=== PATIENT | female | born 1970 | race American Indian/Alaskan Native ===

== ENCOUNTER 2018-08-11 19:25 | Emergency (ER) | payer SELFPAY ==
[2018-08-11 19:37] VITALS: BP 154/98
[2018-08-11] MEDS ORDERED: NORCO 5/325 PO ONE (20:51)
[2018-08-11] MEDS ORDERED: NACL 0.9% 1000 ML 1,000 ML IV ONE (20:51)
[2018-08-11 21:51] LABS: INR 0.95 (0.87-1.13); Partial Thromboplastin Time 25.7 Sec. (24.2-36.6)
--- NOTE | 2018-08-11 21:54 | Cat Scan Report ---
FINAL REPORT EXAM: CT HEAD/BRAIN WO CON HISTORY: syncope TECHNIQUE: 2.5 millimeter axial images from the skullbase to the vertex. Comparison: None FINDINGS: There is no evidence of an acute intracranial process, intracranial hemorrhage or mass effect. The ventricles are normal size. The visualized portions of the orbits, paranasal and mastoid sinuses are unremarkable. The bony structures are unremarkable in appearance. IMPRESSION: 1. No evidence of an acute intracranial process, intracranial hemorrhage or mass effect.
[2018-08-11 22:08] LABS: BUN/Creatinine Ratio 9; Blood Urea Nitrogen 7 mg/dL (7-17); Calcium 8.6 mg/dL (8.4-10.2); Hemolysis Index 16
--- NOTE | 2018-08-11 22:09 | Emergency Department Report ---
HPI - General Chief Complaint: Syncope Time Seen by Provider: 08/11/18 20:35 - HPI HPI: The patient is a 48-year-old female presents for evaluation of syncope. The patient was pleasant one hour prior to arrival, she became overheated and dizzy at home while watching a football game, and passed out. She states that the lightheadedness was severe, constant for seconds, worse with movement, improved with sitting down. The patient also complains of a mild generalized achy headache for the past one hour, clicks insidious onset. The patient denies fever, neck pain, paresthesias, focal motor weakness, blurry vision, ear pain, tinnitus, chest pain, hemoptysis, dyspnea, abdominal pain, confusion or altered mental status, or recent URI or diarrhea. ED Past Medical Hx - Past Medical History Previous Medical History?: Yes Hx Hypertension: Yes - Surgical History Past Surgical History?: Yes Additional Surgical History: , hernia - Social History Smoking Status: Never Smoker Substance Use Type: Alcohol - Medications Home Medications: Home Medications Medication Instructions Recorded Confirmed Last Taken Type Lisinopril [Prinivil] 10 mg PO DAILY 08/11/18 08/11/18 Unknown History ED Review of Systems ROS: Stated complaint: SYNCOPE Other details as noted in HPI Constitutional: reports dizziness & syncope denies: fever ENT: denies: throat or neck pain Respiratory: denies: cough, shortness of breath Cardiovascular: denies: chest pain Endocrine: denies unexplained weight loss or gain Gastrointestinal: denies: abdominal pain, nausea Genitourinary: denies: dysuria Musculoskeletal: denies: leg swelling Skin: denies: rash Neurological: denies: headache Hematological/Lymphatic: denies: easy bleeding or easy bruising Psych: denies sadness or hopelessness Physical Exam - Physical Exam Vital Signs: Vital Signs 08/11/18 08/11/18 19:32 19:42 Temperature 98.4 F 98.4 F Pulse Rate 91 H 91 H Respiratory 18 18 Rate Blood Pressure 154/98 [Left] O2 Sat by Pulse 98 98 Oximetry Physical Exam: General: well-nourished, well-developed, no acute distress Head: Normocephalic, atraumatic Eyes: normal sclera ENT: Mucous membranes are pale and dry Neck: No neck stiffness, no cervical adenopathy Respiratory: Breath sounds equal bilaterally, no wheezing, rales, or rhonchi Cardio: S1 and S2 present, no murmurs, rubs, gallops, capillary refill is delayed Abdomen: Normoactive bowel sounds, soft abdomen, no rigidity, no guarding or rebound tenderness Chest WALL/Back: No tenderness to palpation of the chest wall, no CVA tenderness with percussion Musc: No pitting edema Skin: No rash Neuro: alert oriented x4, normal cognition, speech normal, PERRL, EOM intact, no facial drooping, no uvula or tongue deviation on protrusion, no deficit with rotation of neck or shoulder shrug, no obvious gross motor deficit in the upper or lower extremities with flexion or extension at the shoulder, elbow, wrist, hip, knee, or ankle bilaterally, no obvious gross sensation deficit to crude touch or 2 pt discrimination, 2+ symmetric reflexes on DTR testing, no coordination deficit with [id number] or [id number] testing, Babinski downgoing Psych: Normal affect ED Course Vital Signs 08/11/18 08/11/18 19:32 19:42 Temperature 98.4 F 98.4 F Pulse Rate 91 H 91 H Respiratory 18 18 Rate Blood Pressure 154/98 [Left] O2 Sat by Pulse 98 98 Oximetry ED Medical Decision Making - Medical Decision Making The patient was seen and examined by myself. The patient is placed on a case monitor and continuous pulse ox. On initial evaluation, the patient was found to be in no distress. Evaluation orders are placed. EKG is negative for arrhythmia. IV access is established and the patient is given 1 L normal saline fluid bolus for treatment of her dehydration, and IV Benadryl for her dizziness, and a tablet of [place] for her pain. Lab results are not concerning. CT scan the head is negative for acute intracranial disease process. The patient was reevaluated and reported that their symptoms were markedly improved. The patient is stable for discharge with outpatient follow-up. The patient is given follow-up and return instructions. The patient expressed understanding and agreed with the plan. The patient is discharged in stable condition. Critical care attestation.: If time is entered above; I have spent that time in minutes in the direct care of this critically ill patient, excluding procedure time. ED Disposition Clinical Impression: Dehydration, Orthostatic dizziness, Acute post-traumatic headache, not intractable Syncope Qualifiers: Syncope type: unspecified Qualified Code(s): R55 - Syncope and collapse Disposition: DC-01 TO HOME OR SELFCARE Is pt being admited?: No Does the pt Need Aspirin: No Condition: Stable Instructions: Syncope (ED), Dehydration (ED) Referrals: PRIMARY CARE, [Primary Care Provider] - 3-5 Days [facility] [Outside] - 3-5 Days Time of Disposition: 22:09
[2018-08-11] MEDS ORDERED: TORADOL IV ONE (22:10)
[2018-08-11 22:29] LABS: Basophils % (Auto) 0.5 % (0.0-1.8); Hematocrit 35.2 % (30.3-42.9); Hemoglobin 11.4 gm/dl (10.1-14.3); Lymphocytes % (Auto) 47.5 % (13.4-35.0); Mean Corpuscular HGB Conc 32 % (30-34); Mean Corpuscular Hemoglobin 29 pg (28-32); Mean Corpuscular Volume 89 fl (79-97); Monocytes # (Auto) 0.3 K/mm3 (0.0-0.8); Monocytes % (Auto) 6.4 % (0.0-7.3); Platelet Count 281 K/mm3 (140-440); Red Blood Count 3.96 M/mm3 (3.65-5.03); Red Cell Distribution Width 17.2 % (13.2-15.2)
[2018-08-11] MEDS ORDERED: TORADOL ONE (23:18)
[2018-08-11] MEDS: BENADRYL IV ONE ×2 (23:22→23:25)
== END 2018-08-12 00:25 | disposition home or self-care (01) ==
LOC: ED 19:25
DX: E86.0 Dehydration (principal); R55 Syncope and collapse; I10 Essential (primary) hypertension
CPT/HCPCS: 36415; 70450; 80048; 83880; 84703; 85025; 85610; 85730; 93005; 93010; 96360; 99285; J7030; J1200; J1885

== ENCOUNTER 2018-11-24 22:10 | Inpatient (IN) | payer OTHER, SELFPAY ==
[2018-11-24] MEDS ORDERED: NACL 0.9% 1000 ML 1,000 ML IV ONE (22:20)
[2018-11-24 22:33] LABS: Hematocrit 36.2 % (30.3-42.9); Hemoglobin 11.9 gm/dl (10.1-14.3); Mean Corpuscular HGB Conc 33 % (30-34); Mean Corpuscular Volume 89 fl (79-97); Platelet Count 281 K/mm3 (140-440); Red Blood Count 4.09 M/mm3 (3.65-5.03); Red Cell Distribution Width 17.1 % (13.2-15.2)
[2018-11-24 22:46] LABS: BUN/Creatinine Ratio 10; Blood Urea Nitrogen 7 mg/dL (7-17); Calcium 9.1 mg/dL (8.4-10.2); Hemolysis Index 24
--- NOTE | 2018-11-24 22:59 | XRay Report ---
FINAL REPORT PROCEDURE: XR CHEST 1V AP TECHNIQUE: Chest radiograph anteroposterior view. CPT 20239 HISTORY: Dyspnea COMPARISON: No prior studies are available for comparison. FINDINGS: Heart: Normal. Mediastinum/Vessels: Normal. Lungs/Pleural space: Normal. Bony thorax: No acute osseous abnormality. Life support devices: None. IMPRESSION: No acute cardiopulmonary abnormality.
[2018-11-24 23:06] LABS: INR 0.97 (0.87-1.13); Partial Thromboplastin Time 24.7 Sec. (24.2-36.6)
[2018-11-24 23:08] LABS: Eosinophils % (Manual) 0 % (0.0-4.3); RBC Morphology Normal; Total Cells Counted 100
[2018-11-24 23:34] LABS: Amorphous Crystals,Urine Few; Bilirubin,Urine NEG (Negative); Blood,Urine SM (Negative); Color,Urine Straw (Yellow); Protein,Urine <15 mg/dL mg/dL (Negative); Urobilinogen,Urine < 2.0 mg/dL (<2.0); WBC,Urine < 1.0 /HPF (0.0-6.0)
[2018-11-24 23:42] LABS: Amphetamine Screen,Urine PRESUMPTIVE NEGATIVE; Benzodiazepines Screen,Urine PRESUMPTIVE NEGATIVE; Cannabinoid Screen,Urine PRESUMPTIVE NEGATIVE; Cocaine Screen,Urine PRESUMPTIVE NEGATIVE; Methadone Screen,Urine PRESUMPTIVE NEGATIVE; Opiate Screen,Urine PRESUMPTIVE NEGATIVE
--- NOTE | 2018-11-25 00:40 | Emergency Department Report ---
ED Chest Pain HPI - General Chief Complaint: Dyspnea/Respdistress Stated Complaint: RESP DISTRESS Time Seen by Provider: 11/24/18 22:14 Source: EMS Mode of arrival: Stretcher Limitations: Altered Mental Status - History of Present Illness Initial Comments: Patient is a 48-year-old [place] female who has a past medical history of alcohol abuse who is presenting with cough shortness of breath with chest pain on the right side for the past 2 days. Patient denies any fevers chills nausea vomiting diarrhea at this time. Paramedics stated patient received albuterol treatment when they arrived. In route the patient had episode where her eyes rolled in the back of her head and they state she stopped breathing briefly. The paramedics state that they could not feel a pulse and they did chest compressions for approximately 30 seconds. Patient in gas and opened her eyes and has been awake and oriented since. Patient here for evaluation Severity scale (0 -10): 10 - Related Data Home Medications Medication Instructions Recorded Confirmed Last Taken Lisinopril [Prinivil] 10 mg PO DAILY 08/11/18 08/11/18 Unknown Allergies Allergy/AdvReac Type Severity Reaction Status Date / Time No Known Allergies Allergy Verified 11/24/18 22:32 Heart Score - HEART Score History: Slightly suspicious EKG: Non-specific Age: 45-65 Risk factors: No known risk factors Troponin: < normal limit HEART Score: 2 ED Review of Systems ROS: Stated complaint: RESP DISTRESS Other details as noted in HPI Comment: All other systems reviewed and negative ED Past Medical Hx - Past Medical History Hx Hypertension: Yes - Surgical History Additional Surgical History: , hernia - Social History Smoking Status: Current Every Day Smoker Substance Use Type: Alcohol - Medications Home Medications: Home Medications Medication Instructions Recorded Confirmed Last Taken Type Lisinopril [Prinivil] 10 mg PO DAILY 08/11/18 08/11/18 Unknown History ED Physical Exam - General Limitations: Altered Mental Status General appearance: alert, in no apparent distress, lethargic, other (patient is talking very low and seems to pause before answering questions but does appear to be alert and oriented.) - Head Head exam: Present: atraumatic, normocephalic - Eye Eye exam: Present: normal appearance - ENT ENT exam: Present: mucous membranes moist - Neck Neck exam: Present: normal inspection - Respiratory Respiratory exam: Present: normal lung sounds bilaterally. Absent: respiratory distress, wheezes, rales, rhonchi - Cardiovascular Cardiovascular Exam: Present: regular rate, normal rhythm. Absent: systolic murmur, diastolic murmur, rubs, gallop - GI/Abdominal GI/Abdominal exam: Present: soft, normal bowel sounds. Absent: distended, tenderness, guarding, rebound - Extremities Exam Extremities exam: Present: normal inspection - Back Exam Back exam: Present: normal inspection - Neurological Exam Neurological exam: Present: alert, oriented X3 - Psychiatric Psychiatric exam: Present: normal affect, normal mood - Skin Skin exam: Present: warm, dry, intact, normal color. Absent: rash ED Course Vital Signs 11/24/18 11/24/18 11/24/18 22:27 22:30 22:45 Temperature 99.2 F Pulse Rate 114 H 89 86 Respiratory 26 H 15 16 Rate Blood Pressure 189/104 164/99 153/80 O2 Sat by Pulse 100 100 100 Oximetry 11/24/18 11/24/18 11/24/18 23:05 23:16 23:46 Temperature Pulse Rate 81 81 Respiratory 16 14 Rate Blood Pressure 153/80 125/74 128/70 O2 Sat by Pulse 100 98 100 Oximetry - Reevaluation(s) Reevaluation #1: 11/25/18 00:58 I obtained further information from the patient and her family at this time. Patient nephew called 911 because the patient was behaving abnormally. Patient early in the day had been watching football and had been feeling fine. Patient is everyday drinker and only has no issues with behavior because of alcohol. Patient states she was having some chest discomfort last 2 days and a mild cough in the right side when she moves her arm but she attributed to a muscle strain. Patient earlier today had no intentions of coming to the hospital for this pain. Patient was noted by the nephew to be staring up in the ceiling and was holding her chest and was stating that she was hurting worse than normal. Medics arrived and gave a story that is listed in the history. Patient states that she does not remember arriving here at the hospital. Patient barely remembers R first interaction. Patient's sister states that several months ago the patient had a similar episode where she collapsed at home and was pulseless and apneic. CPR was initiated at that time as well. Patient's currently is alert and oriented 3 and is no longer experiencing any lethargy or difficulty speaking. ED Medical Decision Making - Lab Data Result diagrams: 11/24/18 22:03 11/24/18 22:03 Lab Results 11/24/18 11/24/18 11/24/18 Range/Units 22:03 22:03 22:03 WBC 6.5 (4.5-11.0) K/mm3 RBC 4.09 (3.65-5.03) M/mm3 Hgb 11.9 (10.1-14.3) gm/dl Hct 36.2 (30.3-42.9) % MCV 89 (79-97) fl MCH 29 (28-32) pg MCHC 33 (30-34) % RDW 17.1 H (13.2-15.2) % Plt Count 281 (140-440) K/mm3 Lymph % (Auto) Supply And Distribution Manager Add Manual Diff Complete Total Counted 100 Seg Neutrophils % Supply And Distribution Manager Seg Neuts % (Manual) 43.0 (40.0-70.0) % Band Neutrophils % 0 % Lymphocytes % (Manual) 49.0 H (13.4-35.0) % Reactive Lymphs % (Man) 0 % Monocytes % (Manual) 7.0 (0.0-7.3) % Eosinophils % (Manual) 0 (0.0-4.3) % Basophils % (Manual) 1.0 (0.0-1.8) % Metamyelocytes % 0 % Myelocytes % 0 % Promyelocytes % 0 % Blast Cells % 0 % Nucleated RBC % Not Reportable Seg Neutrophils # Man 2.8 (1.8-7.7) K/mm3 Band Neutrophils # 0.0 K/mm3 Lymphocytes # (Manual) 3.2 (1.2-5.4) K/mm3 Abs React Lymphs (Man) 0.0 K/mm3 Monocytes # (Manual) 0.5 (0.0-0.8) K/mm3 Eosinophils # (Manual) 0.0 (0.0-0.4) K/mm3 Basophils # (Manual) 0.1 (0.0-0.1) K/mm3 Metamyelocytes # 0.0 K/mm3 Myelocytes # 0.0 K/mm3 Promyelocytes # 0.0 K/mm3 Blast Cells # 0.0 K/mm3 WBC Morphology Not Reportable Hypersegmented Neuts Not Reportable Hyposegmented Neuts Not Reportable Hypogranular Neuts Not Reportable Smudge Cells Not Reportable Toxic Granulation Not Reportable Toxic Vacuolation Not Reportable Dohle Bodies Not Reportable Pelger-Huet Anomaly Not Reportable Danny Rods Not Reportable Platelet Estimate Appears normal Clumped Platelets Not Reportable Plt Clumps, EDTA Not Reportable Large Platelets Not Reportable Giant Platelets Not Reportable Platelet Satelliting Not Reportable Plt Morphology Comment Not Reportable RBC Morphology Normal Dimorphic RBCs Not Reportable Polychromasia Not Reportable Hypochromasia Not Reportable Poikilocytosis Not Reportable Anisocytosis Not Reportable Microcytosis Not Reportable Macrocytosis Not Reportable Spherocytes Not Reportable Pappenheimer Bodies Not Reportable Sickle Cells Not Reportable Target Cells Not Reportable Tear Drop Cells Not Reportable Ovalocytes Not Reportable Helmet Cells Not Reportable [place] Bodies Not Reportable [place] Rings Not Reportable [place] Cells Not Reportable Bite Cells Not Reportable Crenated Cell Not Reportable Elliptocytes Not Reportable Acanthocytes (Spur) Not Reportable Rouleaux Not Reportable Hemoglobin C Crystals Not Reportable Schistocytes Not Reportable Malaria parasites Not Reportable Tristan Bodies Not Reportable Hem Pathologist Commnt No PT 13.3 (12.2-14.9) Sec. INR 0.97 (0.87-1.13) APTT 24.7 (24.2-36.6) Sec. D-Dimer 805.94 H (0-234) ng/mlDDU Sodium (137-145) mmol/L Potassium (3.6-5.0) mmol/L Chloride (98-107) mmol/L Carbon Dioxide (22-30) mmol/L Anion Gap mmol/L BUN (7-17) mg/dL Creatinine (0.7-1.2) mg/dL Estimated GFR ml/min BUN/Creatinine Ratio % Glucose (65-100) mg/dL Lactic Acid (0.7-2.0) mmol/L Calcium (8.4-10.2) mg/dL Troponin T < 0.010 (0.00-0.029) ng/mL Urine Color (Yellow) Urine Turbidity (Clear) Urine pH (5.0-7.0) Ur Specific [place] (1.003-1.030) Urine Protein (Negative) mg/dL Urine Glucose (UA) (Negative) mg/dL Urine Ketones (Negative) mg/dL Urine Blood (Negative) Urine Nitrite (Negative) Urine Bilirubin (Negative) Urine Urobilinogen (<2.0) mg/dL Ur Leukocyte Esterase (Negative) Urine WBC (Auto) (0.0-6.0) /HPF Urine RBC (Auto) (0.0-6.0) /HPF U Epithel Cells (Auto) (0-13.0) /HPF Amorphous Crystals Urine Opiates Screen Urine Methadone Screen Ur Barbiturates Screen Ur Phencyclidine Scrn Ur Amphetamines Screen U Benzodiazepines Scrn Urine Cocaine Screen U Marijuana (THC) Screen Drugs of Abuse Note Plasma/Serum Alcohol (0-0.07) % 11/24/18 11/24/18 11/24/18 Range/Units 22:03 22:42 22:42 WBC (4.5-11.0) K/mm3 RBC (3.65-5.03) M/mm3 Hgb (10.1-14.3) gm/dl Hct (30.3-42.9) % MCV (79-97) fl MCH (28-32) pg MCHC (30-34) % RDW (13.2-15.2) % Plt Count (140-440) K/mm3 Lymph % (Auto) Add Manual Diff Total Counted Seg Neutrophils % Seg Neuts % (Manual) (40.0-70.0) % Band Neutrophils % % Lymphocytes % (Manual) (13.4-35.0) % Reactive Lymphs % (Man) % Monocytes % (Manual) (0.0-7.3) % Eosinophils % (Manual) (0.0-4.3) % Basophils % (Manual) (0.0-1.8) % Metamyelocytes % % Myelocytes % % Promyelocytes % % Blast Cells % % Nucleated RBC % Seg Neutrophils # Man (1.8-7.7) K/mm3 Band Neutrophils # K/mm3 Lymphocytes # (Manual) (1.2-5.4) K/mm3 Abs React Lymphs (Man) K/mm3 Monocytes # (Manual) (0.0-0.8) K/mm3 Eosinophils # (Manual) (0.0-0.4) K/mm3 Basophils # (Manual) (0.0-0.1) K/mm3 Metamyelocytes # K/mm3 Myelocytes # K/mm3 Promyelocytes # K/mm3 Blast Cells # K/mm3 WBC Morphology Hypersegmented Neuts Hyposegmented Neuts Hypogranular Neuts Smudge Cells Toxic Granulation Toxic Vacuolation Dohle Bodies Pelger-Huet Anomaly Danny Rods Platelet Estimate Clumped Platelets Plt Clumps, EDTA Large Platelets Giant Platelets Platelet Satelliting Plt Morphology Comment RBC Morphology Dimorphic RBCs Polychromasia Hypochromasia Poikilocytosis Anisocytosis Microcytosis Macrocytosis Spherocytes Pappenheimer Bodies Sickle Cells Target Cells Tear Drop Cells Ovalocytes Helmet Cells [place] Bodies [place] Rings Tal Cells Bite Cells Crenated Cell Elliptocytes Acanthocytes (Spur) Rouleaux Hemoglobin C Crystals Schistocytes Malaria parasites Tristan Bodies Hem Pathologist Commnt PT (12.2-14.9) Sec. INR (0.87-1.13) APTT (24.2-36.6) Sec. D-Dimer (0-234) ng/mlDDU Sodium 139 (137-145) mmol/L Potassium 3.4 L (3.6-5.0) mmol/L Chloride 101.3 (98-107) mmol/L Carbon Dioxide 22 (22-30) mmol/L Anion Gap 19 mmol/L BUN 7 (7-17) mg/dL Creatinine 0.7 (0.7-1.2) mg/dL Estimated GFR > 60 ml/min BUN/Creatinine Ratio 10 % Glucose 103 H (65-100) mg/dL Lactic Acid 2.30 H* (0.7-2.0) mmol/L Calcium 9.1 (8.4-10.2) mg/dL Troponin T (0.00-0.029) ng/mL Urine Color (Yellow) Urine Turbidity (Clear) Urine pH (5.0-7.0) Ur Specific [place] (1.003-1.030) Urine Protein (Negative) mg/dL Urine Glucose (UA) (Negative) mg/dL Urine Ketones (Negative) mg/dL Urine Blood (Negative) Urine Nitrite (Negative) Urine Bilirubin (Negative) Urine Urobilinogen (<2.0) mg/dL Ur Leukocyte Esterase (Negative) Urine WBC (Auto) (0.0-6.0) /HPF Urine RBC (Auto) (0.0-6.0) /HPF U Epithel Cells (Auto) (0-13.0) /HPF Amorphous Crystals Urine Opiates Screen Urine Methadone Screen Ur Barbiturates Screen Ur Phencyclidine Scrn Ur Amphetamines Screen U Benzodiazepines Scrn Urine Cocaine Screen U Marijuana (THC) Screen Drugs of Abuse Note Plasma/Serum Alcohol 0.16 H (0-0.07) % 11/24/18 11/24/18 11/24/18 Range/Units 23:00 23:00 23:43 WBC (4.5-11.0) K/mm3 RBC (3.65-5.03) M/mm3 Hgb (10.1-14.3) gm/dl Hct (30.3-42.9) % MCV (79-97) fl MCH (28-32) pg MCHC (30-34) % RDW (13.2-15.2) % Plt Count (140-440) K/mm3 Lymph % (Auto) Add Manual Diff Total Counted Seg Neutrophils % Seg Neuts % (Manual) (40.0-70.0) % Band Neutrophils % % Lymphocytes % (Manual) (13.4-35.0) % Reactive Lymphs % (Man) % Monocytes % (Manual) (0.0-7.3) % Eosinophils % (Manual) (0.0-4.3) % Basophils % (Manual) (0.0-1.8) % Metamyelocytes % % Myelocytes % % Promyelocytes % % Blast Cells % % Nucleated RBC % Seg Neutrophils # Man (1.8-7.7) K/mm3 Band Neutrophils # K/mm3 Lymphocytes # (Manual) (1.2-5.4) K/mm3 Abs React Lymphs (Man) K/mm3 Monocytes # (Manual) (0.0-0.8) K/mm3 Eosinophils # (Manual) (0.0-0.4) K/mm3 Basophils # (Manual) (0.0-0.1) K/mm3 Metamyelocytes # K/mm3 Myelocytes # K/mm3 Promyelocytes # K/mm3 Blast Cells # K/mm3 WBC Morphology Hypersegmented Neuts Hyposegmented Neuts Hypogranular Neuts Smudge Cells Toxic Granulation Toxic Vacuolation Dohle Bodies Pelger-Huet Anomaly Danny Rods Platelet Estimate Clumped Platelets Plt Clumps, EDTA Large Platelets Giant Platelets Platelet Satelliting Plt Morphology Comment RBC Morphology Dimorphic RBCs Polychromasia Hypochromasia Poikilocytosis Anisocytosis Microcytosis Macrocytosis Spherocytes Pappenheimer Bodies Sickle Cells Target Cells Tear Drop Cells Ovalocytes Helmet Cells [place] Bodies [place] Rings Tal Cells Bite Cells Crenated Cell Elliptocytes Acanthocytes (Spur) Rouleaux Hemoglobin C Crystals Schistocytes Malaria parasites Tristan Bodies Hem Pathologist Commnt PT (12.2-14.9) Sec. INR (0.87-1.13) APTT (24.2-36.6) Sec. D-Dimer (0-234) ng/mlDDU Sodium (137-145) mmol/L Potassium (3.6-5.0) mmol/L Chloride (98-107) mmol/L Carbon Dioxide (22-30) mmol/L Anion Gap mmol/L BUN (7-17) mg/dL Creatinine (0.7-1.2) mg/dL Estimated GFR ml/min BUN/Creatinine Ratio % Glucose (65-100) mg/dL Lactic Acid 1.70 (0.7-2.0) mmol/L Calcium (8.4-10.2) mg/dL Troponin T (0.00-0.029) ng/mL Urine Color Straw (Yellow) Urine Turbidity Clear (Clear) Urine pH 7.0 (5.0-7.0) Ur Specific [place] 1.001 L (1.003-1.030) Urine Protein <15 mg/dl (Negative) mg/dL Urine Glucose (UA) Neg (Negative) mg/dL Urine Ketones Neg (Negative) mg/dL Urine Blood Sm (Negative) Urine Nitrite Neg (Negative) Urine Bilirubin Neg (Negative) Urine Urobilinogen < 2.0 (<2.0) mg/dL Ur Leukocyte Esterase Neg (Negative) Urine WBC (Auto) < 1.0 (0.0-6.0) /HPF Urine RBC (Auto) 1.0 (0.0-6.0) /HPF U Epithel Cells (Auto) 1.0 (0-13.0) /HPF Amorphous Crystals Few Urine Opiates Screen Presumptive negative Urine Methadone Screen Presumptive negative Ur Barbiturates Screen Presumptive negative Ur Phencyclidine Scrn Presumptive negative Ur Amphetamines Screen Presumptive negative U Benzodiazepines Scrn Presumptive negative Urine Cocaine Screen Presumptive negative U Marijuana (THC) Screen Presumptive negative Drugs of Abuse Note Disclamer Plasma/Serum Alcohol (0-0.07) % - EKG Data -: EKG Interpreted by Me - EKG Data 11/25/18 00:39 Patient's EKG shows sinus tachycardia 101. There is normal axis normal intervals. There are no ST segment elevations or depressions. Time of interpretation is 2225 - Radiology Data X-ray of the chest shows no acute process. CT angiogram of the chest was negative for PE or dissection. - Medical Decision Making Because of the patient's brief episode of PA patient will be admitted to the hospitalist service for observation. Critical care attestation.: If time is entered above; I have spent that time in minutes in the direct care of this critically ill patient, excluding procedure time. ED Disposition Clinical Impression: Life-threatening cardiac arrhythmia Chest pain Qualifiers: Chest pain type: unspecified Qualified Code(s): R07.9 - Chest pain, unspecified Syncope Qualifiers: Syncope type: unspecified Qualified Code(s): R55 - Syncope and collapse Alcohol intoxication Qualifiers: Complication of substance-induced condition: uncomplicated Qualified Code(s): F10.920 - Alcohol use, unspecified with intoxication, uncomplicated Disposition: DC-09 OP ADMIT IP TO THIS HOSP Is pt being admited?: Yes Does the pt Need Aspirin: No Condition: Stable Instructions: Chest Pain (ED), Syncope (ED) Referrals: PRIMARY CARE, [Primary Care Provider] - 3-5 Days Time of Disposition: 01:14
--- NOTE | 2018-11-25 00:42 | Cat Scan Report ---
FINAL REPORT PROCEDURE: CT ANGIO CHEST TECHNIQUE: Computerized tomographic angiography of the chest was performed after the IV injection of iodinated nonionic contrast including image processing. The image data was postprocessed using 2-dim ensional multiplanar reformatted (MPR) and 3-dimensional (MIP and/or volume rendered) techniques. HISTORY: right sided chest pain, syncope en route COMPARISON: No prior studies are available for comparison. FINDINGS: Heart and pericardium: Normal. Thoracic aorta: Normal. Pulmonary vasculature: Normal. Lymph nodes: No enlarged thoracic lymph nodes. Lungs: Normal. Pleural space: No effusion, thickening, or pneumothorax. Musculoskeletal structures: No significant abnormality. Upper abdominal structures: No significant abnormality. IMPRESSION: There is no evidence of pulmonary arterial emboli. The lungs are clear without infiltrate, effusion o r pneumothorax.
[2018-11-25] MEDS ORDERED: MORPHINE IV PRN (01:56)
[2018-11-25] MEDS ORDERED: TYLENOL PO PRN (01:58)
[2018-11-25] MEDS ORDERED: NITROSTAT SL PRN (01:58)
[2018-11-25] MEDS ORDERED: ZOFRAN IV PRN (02:01)
[2018-11-25] MEDS: HEPARIN SUB-Q SCH ×3 (02:20→21:33)
--- NOTE | 2018-11-25 03:57 | History and Physical Report ---
CHIEF COMPLAINT: Chest pain. Other complaint includes syncope. HISTORY OF PRESENT ILLNESS: The patient is a 48-year-old female known to be abusing alcohol, who complained of right-sided chest pain going on for 2 days. There is also history of shortness of breath and no history of diaphoresis and no history of nausea or vomiting. The patient stated the pain is noticeable whenever she moves her right upper extremity and is sharp in consistency and located in the right anterior chest wall area. The patient called EMS, who gave the patient some breathing treatments on arrival and brought the patient back to the Emergency Room. While en route to the hospital, EMS noticed the patient's eyes to roll back with brief stoppage of breathing and loss of pulse for about 30 seconds during which the patient was subjected to CPR with chest compression that lasted for about 30 seconds and the patient regained a pulse and regained consciousness and became awake and alert and was brought to the Emergency Room, alert and oriented x 3. There was no history of fever or chills. PAST MEDICAL HISTORY: Pertinent for hypertension and alcohol abuse. PAST SURGICAL HISTORY: Pertinent for and hernia. FAMILY HISTORY: Noncontributory. SOCIAL HISTORY: The patient drinks alcohol regularly, smokes cigarettes, does not use illicit drugs. MEDICATIONS: The patient is on lisinopril 10 mg by mouth daily. ALLERGIES: There are no known drug allergies. REVIEW OF SYSTEMS: CONSTITUTIONAL: There is no fever, no chills, no diaphoresis. HEENT: There is no headache or sore throat. CARDIOVASCULAR SYSTEM: Right-sided chest pain noted. No orthopnea. RESPIRATORY SYSTEM: Shortness of breath noted. Cough noted. GASTROINTESTINAL SYSTEM: There is no nausea, no vomiting, no abdominal pain, diarrhea or constipation. NEUROLOGICAL SYSTEM: Syncopal attack noted. There is no numbness. MUSCULOSKELETAL SYSTEM: There is no joint pain or swelling. DERMATOLOGICAL SYSTEM: There is no skin rash or itching. GENITOURINARY SYSTEM: There is no dysuria, hematuria or flank pain. Rest of system review is normal. PHYSICAL EXAMINATION: GENERAL: At the time of exam, the patient was found to be alert, oriented x 3 and not in acute distress. VITAL SIGNS: At the initial time of presentation show temperature of 99.2 degrees Fahrenheit, pulse of 114, respirations of 26, blood pressure 189/104, O2 sat of 100% on room air, blood pressure checked after about 45 to 50 minutes showed a level of 153/80. HEENT: Showed pupils to be equal, round, reactive to light and accommodating. Extraocular muscles are intact. NECK: Supple with no JVD or carotid bruits. CARDIOVASCULAR: Showed normal first and second heart sounds with no gallops or murmur. RESPIRATORY SYSTEM: Show good air entry on both sides of the lungs with no abnormal breath sounds. GASTROINTESTINAL SYSTEM: Show abdomen to be full, soft, nontender with no organomegaly or rigidity. NEUROLOGIC: Shows no focal deficit. MUSCULOSKELETAL SYSTEM: Show no joint swelling or tenderness. DERMATOLOGIC: Showing no skin rash. GENITOURINARY SYSTEM: Showing no costovertebral angle tenderness. PERTINENT LABORATORY AND IMAGING STUDIES: The patient has CT of the chest with contrast or CT angiogram done that shows no pulmonary emboli and no infiltrate, effusion or pneumothorax. The patient also had chest x-ray done that was unremarkable. Lab results, the patient's CBC came back unremarkable except for elevated lymphocyte count of 49% on CBC differential. The patient's coagulation studies show high D-dimer of 805.9 that led to the ordering of CT angiogram. The patient's chemistry show normal sodium with slightly low potassium level of 3.4 with rest of chemistry being unremarkable. Troponin level came back normal. The patient's urinalysis was unremarkable. Urine drug screen was unremarkable. Plasma alcohol level was high with a value of 0.16. DIAGNOSES: 1. Chest pain. 2. Syncopal attack. 3. Hypokalemia. 4. Alcohol abuse. PLAN OF ACTION: 1. The patient will be admitted to telemetry. 2. The patient will have cardiac enzymes involving troponin, total CK, and CK-MB checked q. 6 hours x 2 more levels. 3. The patient will have 2D echo done in the morning and will also remain n.p.o. for Lexiscan stress test. 4. The patient will have Cardiology consult with Dr. Torres in the morning because of chest pain with syncope and arrhythmia. 5. The patient will be on aspirin 325 mg daily and will be on heparin 5000 units subcutaneous q. 12 hours for DVT prophylaxis. 6. The patient will be on IV morphine 2 mg every 3 hours as needed for chest pain and IV Zofran 4 mg every 8 hours for nausea and vomiting. 7. The patient will be on sublingual nitroglycerin 0.4 mg every 5 minutes as needed for chest pain and will be on Tylenol 650 mg by mouth every 4 hours as needed for fever and headache. 8. The patient will be on oxygen by nasal cannula at 2 liters per minute and will have IV potassium chloride 20 mEq x 1 dose. 9. The patient will be on IV Ativan 2 mg every 4 hours as needed for agitation and anxiety following alcohol abuse. 10. The patient will remain n.p.o. for Lexiscan stress test this morning. 11. The patient will have bilateral carotid Doppler done this morning because of syncope. JOB# [id number] OCN/NTS
[2018-11-25 06:07] LABS: Creatine Kinase MB 3.6 ng/mL (0.0-4.0)
[2018-11-25] MEDS ORDERED: ATIVAN IV PRN (06:28)
[2018-11-25] MEDS ORDERED: MAGNESIUM SULFATE IV ONE (09:58)
[2018-11-25] MEDS ORDERED: KCL 10MEQ/100ML 10 MEQ/100 ML BAG IV SCH (10:00)
[2018-11-25] MEDS ORDERED: MAGNESIUM SULFATE 1 GM in NACL 0.9% 50 ML IV ONE (11:00)
[2018-11-25] MEDS ORDERED: LEXISCAN IV ONE ×2 (11:42→11:55)
--- NOTE | 2018-11-25 11:59 | Consultation ---
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 has a history of EtOH abuse has had an episode syncope back in July and was discharged from the emergency room normal EKG felt to be secondary to EtOH use patient states that she has to 3 mixed drinks anterior feel stressed out yesterday she started drink and then had also an right-sided chest pain that was nonradiating sharp in nature not relieving EMS was called on arrival patient was brought to emergency room but en route as per the documentation from the chart states that she's lost consciousness for about 30 seconds and eyes rolled back loss of pulse and CPR was initiated and she regained there is no rhythm strips to document rhythm during that time patient denies any symptoms prior to passing out but somewhat which had in the past. Patient is currently chest pain-free. Denies any fever chills or trauma to the area palpitations or melena Past History Past Medical History: hypertension Past Surgical History: denies: No surgical history Social history: alcohol abuse. denies: smoking, prescription drug abuse Family history: denies: no significant family history Medications and Allergies Allergies Allergy/AdvReac Type Severity Reaction Status Date / Time No Known Allergies Allergy Verified 11/24/18 22:32 Home Medications Medication Instructions Recorded Confirmed Last Taken Type Lisinopril [Prinivil] 40 mg PO DAILY 08/11/18 11/25/18 11/24/18 10:00 History Active Meds: Active Medications Acetaminophen (Tylenol) 650 mg PO Q4H PRN PRN Reason: Fever >101 Aspirin (Aspirin) 325 mg PO QDAY [facility] Heparin Sodium (Porcine) (Heparin) 5,000 unit SUB-Q Q12HR [facility] Last Admin: 11/25/18 02:20 Dose: 5,000 unit Documented by: Magnesium Sulfate 1 gm/ Sodium (Chloride) 52 mls @ 52 mls/hr IV ONCE ONE Stop: 11/25/18 11:59 Lorazepam (Ativan) 1 mg IV Q4H PRN PRN Reason: Anxiety Morphine Sulfate (Morphine) 2 mg IV Q3H PRN PRN Reason: Pain, Moderate (4-6) Nitroglycerin (Nitrostat) 0.4 mg SL .Q5MIN PRN PRN Reason: Chest Pain Ondansetron HCl (Zofran) 4 mg IV Q8H PRN PRN Reason: Nausea And Vomiting Regadenoson (Lexiscan) 0.4 mg IV ONCE ONE Stop: 11/25/18 11:56 Review of Systems All systems: negative (as per the HPI) Physical Examination Vital Signs Temp Pulse Resp BP Pulse Ox 99.2 F 114 H 26 H 189/104 100 11/24/18 22:27 11/24/18 22:27 11/24/18 22:27 11/24/18 22:27 11/24/18 22:27 General appearance: no acute distress, well-nourished HEENT: Positive: PERRL, Mucus Membranes Moist Neck: Positive: neck supple, trachea midline Cardiac: Positive: Reg Rate and Rhythm, S1/S2. Negative: Audible Murmur Lungs: Positive: clear to auscultation, Normal Breath Sounds Neuro: Positive: Grossly Intact Abdomen: Positive: Soft, Active Bowel Sounds. Negative: Tender, Distended Female genitourinary: deferred Skin: Positive: Clear Incision: Cardiac Cath Site Musculoskeletal: No Pain, Normal Range of Motion Extremities: Present: normal. Absent: edema Results 11/24/18 22:03 11/24/18 22:03 Cardiac Enzymes 11/25/18 Range/Units 04:49 CK-MB (CK-2) 3.6 (0.0-4.0) ng/mL Coagulation 11/24/18 Range/Units 22:03 PT 13.3 (12.2-14.9) Sec. INR 0.97 (0.87-1.13) APTT 24.7 (24.2-36.6) Sec. CBC 11/24/18 Range/Units 22:03 WBC 6.5 (4.5-11.0) K/mm3 RBC 4.09 (3.65-5.03) M/mm3 Hgb 11.9 (10.1-14.3) gm/dl Hct 36.2 (30.3-42.9) % Plt Count 281 (140-440) K/mm3 Comprehensive Metabolic Panel 11/24/18 Range/Units 22:03 Sodium 139 (137-145) mmol/L Potassium 3.4 L (3.6-5.0) mmol/L Chloride 101.3 (98-107) mmol/L Carbon Dioxide 22 (22-30) mmol/L BUN 7 (7-17) mg/dL Creatinine 0.7 (0.7-1.2) mg/dL Glucose 103 H (65-100) mg/dL Calcium 9.1 (8.4-10.2) mg/dL - Imaging and Cardiology Stress echo: pending, report reviewed (normal myocardial perfusion ) Echo: pending, report reviewed (normal lv function and no signficant regurtiations. ) EKG interpretations - Telemetry EKG Rhythm: Sinus Rhythm (normal sinus rhythm nonspecific ST-T) Assessment and Plan Syncope Questionable cardiac arrest Chest pain CT ruled out Hypertension EtOH abuse Obesity Recommend advice. stop Drinking will follow-up echo and stress test, stress and echo are normal, check orstatic bp and may discharge from [facility] point of view
[2018-11-25] MEDS: KCL 10MEQ/100ML 10 MEQ/100 ML BAG IV SCH ×2 (13:15→15:14)
[2018-11-25] MEDS: ASPIRIN PO SCH (13:25)
[2018-11-25 13:55] LABS: Creatine Kinase MB 2.5 ng/mL (0.0-4.0)
--- NOTE | 2018-11-25 14:39 | Event Note ---
Date: 11/25/18 Patient seen and examined this morning mother at the bedside the patient reports that she's been on the lots of stress and offer formal psychiatric evaluation was also recommended to assist with stress management patient declined. She is also time for stress test she denies any withdrawal symptoms. Will institute a sewer builder protocol and continue current management and monitor for the next 24 hours if remains stable with no recurrent syncopal episode patient consented for the discharge plan. We'll also go ahead and replace potassium and magnesium.
--- NOTE | 2018-11-25 21:59 | Treadmill Report ---
NUCLEAR PERFUSION STUDY REASON FOR STUDY: Chest pain. IMAGING PROTOCOL: IMAGING PROTOCOL: The patient received 10 mCi of Technetium 99m Tetrofosmin for resting image and 28 mCi of Technetium 99m Tetrofosmin for stress imaging. The imaging for the whole procedure was completed 30-90 minutes following the initial injection of Technetium 99m Tetrofosmin. The SPECT imaging in the 180 degree arc was performed in the right anterior oblique projection. Computerized reconstruction of the images was performed for analysis. IMAGING RESULTS: Normal cavity size from stress to rest. Normal distribution of radionuclide in the anterior, inferior, septal, and apical regions. Gated SPECT shows EF 62% with no wall motion abnormality. The patient infused Lexiscan with no EKG changes. SUMMARY: 1. Negative Lexiscan EKG. 2. Normal rest and stress myocardial perfusion scan. No significant stress ischemia. No wall motion abnormality. Gated SPECT shows EF greater than 60%. JOB# [id number] CAROL/MICHELLE
[2018-11-26] MEDS: ASPIRIN PO SCH (10:21)
[2018-11-26] MEDS: HEPARIN SUB-Q SCH (10:22)
--- NOTE | 2018-11-26 11:12 | Discharge Summary ---
Providers - Providers Date of Admission: 11/25/18 02:30 Attending physician: JUAN J MURRELL MD 11/25/18 06:00 Consult to Physician [CONS] Routine Comment: Consulting Provider: ELIZABETH PIERRE Physician Instructions: Reason For Exam: CHEST PAIN,SYNCOPE & ARRYTHMIA NEEDING CPR Primary care physician: MEDICAL REIMBURSEMENT MANAGER Hospitalization Reason for admission: SYNCOPE Condition: Stable Hospital course: Pt is a 48-year-old [place] female who has a past medical history of alcohol abuse who is presenting with cough shortness of breath with chest pain on the right side for the past 2 days. Paramedics where called at the onset of the shortness of breath and the patient received albuterol with no improve. On presentation the patient had a mild syncopal episode that and stopped breathing briefly requiring some compressions. The patient returned a pulse after 30 seconds. she underwent a stress test that was negative. She reported significant stress in her life collaborated by her mother who also reports prior episode. We had a long conversation greater than 30mins about etoh cessation and also tobacco cessation and stress management. Also to follow with cardiology outpatient. Syncope Questionable cardiac arrest Chest pain DC ruled out Hypertension EtOH abuse Hypokalemia Tobacco abuse Obesity Disposition: DC-01 TO HOME OR SELFCARE Time spent for discharge: 35 MINS Core Measure Documentation - Palliative Care Palliative Care/ Comfort Measures: Not Applicable - Core Measures Any of the following diagnoses?: none - VTE Discharge Requirements Deep Vein Thrombosis/Pulmonary Embolism Present on Admission: No Exam - Physical Exam Narrative exam: VITAL SIGNS: Reviewed. GENERAL: The patient appeared well nourished and normally developed. Vital signs as documented. HEAD: No signs of head trauma. EYES: Pupils are equal. Extraocular motions intact. EARS: Hearing grossly intact. MOUTH: Oropharynx is normal. NECK: No adenopathy, no JVD. CHEST: Chest with clear breath sounds bilaterally. No wheezes, rales, or rhonchi. CARDIAC: Regular rate and rhythm. S1 and S2, without murmurs, gallops, or rubs. VASCULAR: No Edema. Peripheral pulses normal and equal in all extremities. ABDOMEN: Soft, without detectable tenderness. No sign of distention. No rebound or guarding, and no masses palpated. Bowel Sounds normal. MUSCULOSKELETAL: Good range of motion of all major joints. Extremities without clubbing, cyanosis or edema. NEUROLOGIC EXAM: Alert and oriented x 3. No focal sensory or strength deficits. Speech normal. Follows commands. PSYCHIATRIC: Mood normal. SKIN: No rash or lesions. - Constitutional Vitals: Temp Pulse Resp BP Pulse Ox 98.3 F 70 20 107/61 98 11/26/18 07:50 11/26/18 07:50 11/26/18 07:50 11/26/18 07:50 11/26/18 07:50 Plan Activity: advance as tolerated, fall precautions Diet: low salt Special Instructions: smoking cessation, other (MUST QUIT ETOH. RECOMMEND ENROLLMENT IN AA) Follow up with: PRIMARY CARE, [Primary Care Provider] - 3-5 Days SARTHAK CÁRDENAS MD [Staff Physician] - 7 Days
[2018-11-26 11:55] VITALS: BP 134/65
== END 2018-11-26 14:00 | disposition home or self-care (01) | DRG 312 ==
LOC: ED 22:10 → 4A 11-25 02:30
PROVIDERS: ADMIT Internal Medicine; ATTEND Internal Medicine
PROC: 5A12012 Performance of Cardiac Output, Single, Manual (ICD-10-PCS; principal; 2018-11-25)
DX: R55 Syncope and collapse (principal); I46.9 Cardiac arrest, cause unspecified; Z68.41 Body mass index [BMI] 40.0-44.9, adult; R07.9 Chest pain, unspecified; I10 Essential (primary) hypertension; F17.200 Nicotine dependence, unspecified, uncomplicated; E87.6 Hypokalemia; E66.9 Obesity, unspecified; I49.8 Other specified cardiac arrhythmias; F10.129 Alcohol abuse with intoxication, unspecified; Z71.41 Alcohol abuse counseling and surveillance of alcoholic; Z71.6 Tobacco abuse counseling
CPT/HCPCS: 36415; 71045; 71275; 78452; 80048; 80307; 80320; 81001; 82140; 82550; 82553; 84484; 85007; 85025; 85379; 85610; 85730; 93005; 93010; 93017; 93306; 93880; 94760; 96361; 96374; G0378; A9502; G0480; J1644; J2785; J3475; J3480; J7030; Q9967

== ENCOUNTER 2022-06-14 11:36 | Emergency (ER) | payer OTHER, SELFPAY ==
[2022-06-14 12:27] VITALS: BP 97/65
--- NOTE | 2022-06-14 12:41 | Emergency Department Report ---
Abscess Boil HPI - HPI Chief Complaint: Skin/Abscess/Foreign Body Stated Complaint: KNOT UNDER LT BREAST Time Seen by Provider: 06/14/22 12:39 Duration: >1 Week Location: Other Severity: Mild History: Yes Pain, Yes Previous History, No Fever, No Purulent Drainage, No Numbness, No Foreign Body, No Insect Bite HPI: 52 YO COMES WITH SMALL 2CM X 2CM AREA OF REDNESS BETWEEN BREAST. NO ABSCESS FOR I/D. IT IS RED AND PAINFUL. NO FEVER OR CHILLS. PT NON TOXIC Home Medications: Home Medications Medication Instructions Recorded Confirmed Last Taken lisinopriL [Prinivil] 40 mg PO DAILY 08/11/18 11/25/18 11/24/18 10:00 Previous Rx's Medication Instructions Recorded Last Taken Type cephALEXin [Keflex] 500 mg PO Q12HR #20 cap 06/14/22 Unknown Rx Allergies/Adverse Reactions: Allergies Allergy/AdvReac Type Severity Reaction Status Date / Time No Known Allergies Allergy Verified 06/14/22 12:28 ED Review of Systems ROS: Stated complaint: KNOT UNDER LT BREAST Other details as noted in HPI Comment: All other systems reviewed and negative ED Past Medical Hx - Past Medical History Previous Medical History?: Yes Hx Hypertension: Yes Hx Congestive Heart Failure: No Hx Diabetes: No Hx Arthritis: Yes Hx Asthma: No Hx COPD: No Hx HIV: No - Surgical History Past Surgical History?: Yes Additional Surgical History: , hernia - Family History Family history: no significant - Social History Smoking Status: Former Smoker Substance Use Type: None - Medications Home Medications: Home Medications Medication Instructions Recorded Confirmed Last Taken Type lisinopriL [Prinivil] 40 mg PO DAILY 08/11/18 11/25/18 11/24/18 10:00 History cephALEXin [Keflex] 500 mg PO Q12HR #20 cap 06/14/22 Unknown Rx ED Abscess Boil Physical Exam - Exam General: Vital signs noted. No distress. Alert and acting appropriately. Size: 2 cm Exam: Yes Tenderness, Yes Surrounding Cellulites/Erythema, Yes Normal Neurologic Exam, Yes Normal Circulation, No Fluctuance, No Lymphangitis, No Crepitation, No Heart Murmur ED Course Vital Signs 06/14/22 12:21 Temperature 98.1 F Pulse Rate 79 Respiratory 20 Rate Blood Pressure 97/65 [Right] O2 Sat by Pulse 100 Oximetry Critical care attestation.: If time is entered above; I have spent that time in minutes in the direct care of this critically ill patient, excluding procedure time. ED Medical Decision Making - Medical Decision Making Vital Signs 06/14/22 12:21 Temperature 98.1 F Pulse Rate 79 Respiratory 20 Rate Blood Pressure 97/65 [Right] O2 Sat by Pulse 100 Oximetry EDUCATED ON WOUND CARE. NO INDICATION FOR I/D TAKING PO DC HOME WITH DC PLAN OF CARE INCLUDING DIET, MEDS, ACTIVITY AND FOLLOW UP. PT VERBALIZES UNDERSTANDING OF PLAN OF CARE - Differential Diagnosis ABSCESS/CELLULTUS ED Disposition Clinical Impression: Cellulitis Qualifiers: Site of cellulitis: unspecified site Qualified Code(s): L03.90 - Cellulitis, unspecified Disposition: HOME / SELF CARE / HOMELESS Is pt being admited?: No Does the pt Need Aspirin: No Condition: Stable Instructions: Cellulitis, Adult Additional Instructions: warm compresses motrin or tylenol for pain keflex until gone follow up with pcp referral below Prescriptions: cephALEXin [Keflex] 500 mg PO Q12HR #20 cap Referrals: FREDDY WOOD MD [Primary Care Provider] - 3-5 Days Time of Disposition: 12:47
== END 2022-06-14 13:00 | disposition home or self-care (01) ==
LOC: ED 11:36
DX: N61.0 Mastitis without abscess (principal); I10 Essential (primary) hypertension; M19.90 Unspecified osteoarthritis, unspecified site; Z98.890 Other specified postprocedural states; F17.290 Nicotine dependence, other tobacco product, uncomplicated
CPT/HCPCS: 99281